=== PATIENT | male | born 1945 | race Hispanic/Latino ===

== ENCOUNTER 2020-08-24 10:00 | Observation (INO) | payer OTHER ==
[2020-08-24 12:51] LABS: BASOPHILS % (AUTO) 0.1 % (0.0-5.0); EOSINOPHILS % (AUTO) 0.3 % (0.0-8.0); HEMATOCRIT 44.2 % (36-48); LYMPHOCYTES % (AUTO) 14.3 % (21.0-51.0); MEAN CORPUSCULAR HEMOGLOBIN 28.4 pg (27.0-33.0); MEAN CORPUSCULAR HGB CONC 32.4 g/dL (32.0-36.0); MEAN CORPUSCULAR VOLUME 87.7 fL (79-99); MONOCYTES % (AUTO) 2.3 % (3.0-13.0); NEUTROPHILS % (AUTO) 82.7 % (40.0-77.0); PLATELET COUNT (AUTO) 268 K/uL (130-400); RED BLOOD CELL COUNT(AUTO) 5.04 MIL/uL (4.00-5.50); RED CELL DISTRIBUTION WIDTH 12.7 % (11.0-15.5); WHITE BLOOD COUNT (AUTO) 8.8 K/uL (4.8-10.8)
[2020-08-24 13:02] LABS: INR 1.01 (0.85-1.15)
[2020-08-24 13:03] LABS: PARTIAL THROMBOPLASTIN TIME 31.1 SEC (26.3-35.5)
[2020-08-24 13:09] LABS: ALBUMIN 3.9 g/dL (3.5-5.0); BILIRUBIN,TOTAL 0.3 mg/dL (0.2-1.0); CREATININE 1.1 mg/dL (0.5-1.5); POTASSIUM 4.4 mmol/L (3.5-5.1); TOTAL PROTEIN, SERUM 7.8 g/dL (6.0-8.3)
[2020-08-31] MEDS ORDERED: TRAZ-185 PO (14:37)
[2020-08-31] MEDS ORDERED: ASPI-1197 PO (14:37)
[2020-08-31] MEDS ORDERED: IBUP-2071 PO (14:37)
[2020-08-31] MEDS ORDERED: TRAM50TA4 PO (14:37)
[2020-08-31] MEDS ORDERED: AMLO-257 PO (14:37)
[2020-08-31] MEDS ORDERED: TELMISARTAN PO (14:40)
[2020-09-01] VITALS (23 sets, daily range): BP systolic 111–167; BP diastolic 43–82
[2020-09-01] MEDS ORDERED: CEFAZOLIN SODIUM 1 GM VIAL IVP SCH (06:00)
[2020-09-01] MEDS ORDERED: TRANEXAMIC ACID 3,000 MG in SODIUM CHLORIDE IRRIG SOLUTION 250 ML TP SCH (06:00)
[2020-09-01] MEDS: LACTATED RINGERS 1000ML 1,000 ML IV SCH ×4 (08:23→15:24)
[2020-09-01] MEDS ORDERED: CEFAZOLIN SODIUM 1 GM VIAL ONE (08:56)
[2020-09-01] MEDS ORDERED: LIDOCAINE HCL-MPF 1% 5ML AMP IJ ONE (09:21)
[2020-09-01] MEDS ORDERED: FENTANYL CITRATE PF 50 MCG/1 ML 2ML VIAL ONE ×2 (09:21→10:06)
[2020-09-01] MEDS ORDERED: SUCCINYLCHOLINE CHLORIDE 20 MG/ML 10 ML VIAL ONE (09:21)
[2020-09-01] MEDS ORDERED: PROPOFOL 10 MG/ML 20ML VIAL IV ONE (09:21)
[2020-09-01] MEDS ORDERED: MIDAZOLAM HCL 1 MG/ML 2ML VIAL ONE (09:21)
[2020-09-01] MEDS ORDERED: TRANEXAMIC ACID 1000MG/10ML ONE (09:23)
[2020-09-01] MEDS ORDERED: EPHEDRINE SULFATE 50 MG/ML AMPULE ONE (09:32)
[2020-09-01] MEDS ORDERED: ROCURONIUM 10MG/1ML SYR 10 MG/ML ML ONE (09:40)
[2020-09-01] MEDS ORDERED: POTASSIUM CHLORIDE 20 MEQ ERTAB PO PRN (09:45)
[2020-09-01] MEDS ORDERED: POTASSIUM CHLORIDE 20MEQ/100ML 100 ML IV PRN (09:45)
[2020-09-01] MEDS ORDERED: POTASSIUM CHLORIDE 10% ELIXIR 20 MEQ/15 ML UDCUP PO PRN (09:45)
[2020-09-01] MEDS: ACETAMINOPHEN EXTRA STRENGTH 500 MG TABLET PO SCH ×2 (09:45→17:00)
[2020-09-01] MEDS ORDERED: LIDOCAINE HCL-MPF 1% 2ML VIAL IV PRN (09:45)
[2020-09-01] MEDS ORDERED: ONDANSETRON HCL 4 MG/2 ML VIAL IVP PRN (09:45)
[2020-09-01] MEDS: SODIUM CHLORIDE 0.9% 1000ML 1,000 ML IV SCH ×2 (09:45→19:45)
[2020-09-01] MEDS ORDERED: BUPIVACAINE/PF 0.25% 30ML VIAL IJ ONE (10:05)
[2020-09-01] MEDS ORDERED: NITROGLYCERIN 50 MG/D5% WATER 0 BOT ONE (10:09)
[2020-09-01] MEDS ORDERED: GLYCOPYRROLATE 1 MG/5 ML SYRINGE ONE (10:12)
[2020-09-01] MEDS ORDERED: MEPERIDINE-PF 25 MG/ML SYG ONE (12:21)
[2020-09-01] MEDS: OXYCODONE HCL 5 MG TAB PO PRN ×2 (15:31→21:31)
[2020-09-01] MEDS: CEFAZOLIN SODIUM 1 GM VIAL IVP SCH ×2 (15:32→20:12)
[2020-09-01] MEDS: MORPHINE SULFATE 4 MG/1ML SYG IVP PRN ×2 (17:01→20:12)
[2020-09-01] MEDS: FAMOTIDINE 20MG TAB 20 MG TAB PO SCH (20:12)
[2020-09-01] MEDS ORDERED: ASPIRIN 81 MG EC TAB PO SCH (21:00)
[2020-09-01] MEDS ORDERED: ASPIRIN 81MG TAB.CHEW ONE (21:06)
[2020-09-01] MEDS: ASPIRIN 81 MG EC TAB PO SCH (21:08)
[2020-09-01] MEDS: TRAMADOL HCL 50 MG TABLET PO PRN (22:36)
[2020-09-01] MEDS: TRAZODONE HCL 50 MG TAB PO PRN (22:36)
[2020-09-01] MEDS: KETOROLAC TROMETHAMINE 15MG/ML IV PRN (23:18)
[2020-09-02 00:07] VITALS: BP 152/77
[2020-09-02] MEDS: ACETAMINOPHEN EXTRA STRENGTH 500 MG TABLET PO SCH ×3 (02:16→20:40)
[2020-09-02 04:00] VITALS: BP 113/65
[2020-09-02 04:06] LABS: HEMATOCRIT 36.9 % (42-54); MEAN CORPUSCULAR HEMOGLOBIN 27.5 pg (27.0-33.0); RED BLOOD CELL COUNT(AUTO) 4.29 MIL/uL (4.50-6.20); RED CELL DISTRIBUTION WIDTH 12.6 % (11.0-15.5); WHITE BLOOD COUNT (AUTO) 13.5 K/uL (4.8-10.8)
[2020-09-02 04:17] LABS: POTASSIUM 4.3 mmol/L (3.5-5.1)
[2020-09-02] MEDS: OXYCODONE HCL 5 MG TAB PO PRN ×3 (05:37→17:10)
[2020-09-02] MEDS ORDERED: ASPIRIN 81MG TAB.CHEW PO SCH (08:00)
[2020-09-02] MEDS: AMLODIPINE BESYLATE 5 MG TAB PO SCH (08:16)
[2020-09-02] MEDS: LOSARTAN 50 MG TABLET PO SCH (08:16)
[2020-09-02] MEDS: ASPIRIN 81 MG EC TAB PO SCH ×2 (08:16→20:39)
[2020-09-02] MEDS: POLYETHYLENE GLYCOL 3350 17 GM POWD.PACK PO SCH (08:17)
[2020-09-02] MEDS: FAMOTIDINE 20MG TAB 20 MG TAB PO SCH ×2 (08:17→20:39)
[2020-09-02] MEDS: KETOROLAC TROMETHAMINE 15MG/ML IV PRN ×2 (08:17→20:42)
[2020-09-02 08:27] VITALS: BP 135/64
[2020-09-02 11:59] VITALS: BP 121/61
[2020-09-02] MEDS: MORPHINE SULFATE 4 MG/1ML SYG IVP PRN (12:49)
[2020-09-02 17:03] VITALS: BP 120/72
[2020-09-02 19:38] VITALS: BP 156/75
[2020-09-02] MEDS: TRAZODONE HCL 50 MG TAB PO PRN (20:41)
[2020-09-03 04:00] VITALS: BP 128/60
[2020-09-03] MEDS: KETOROLAC TROMETHAMINE 15MG/ML IV PRN ×2 (04:12→10:58)
[2020-09-03] MEDS: ACETAMINOPHEN EXTRA STRENGTH 500 MG TABLET PO SCH ×2 (05:19→14:48)
[2020-09-03 08:00] VITALS: BP 119/49
[2020-09-03] MEDS: POLYETHYLENE GLYCOL 3350 17 GM POWD.PACK PO SCH (10:57)
[2020-09-03] MEDS: FAMOTIDINE 20MG TAB 20 MG TAB PO SCH (10:57)
[2020-09-03] MEDS: AMLODIPINE BESYLATE 5 MG TAB PO SCH (10:58)
[2020-09-03] MEDS: ASPIRIN 81 MG EC TAB PO SCH (10:58)
[2020-09-03] MEDS: LOSARTAN 50 MG TABLET PO SCH (10:58)
[2020-09-03 11:00] VITALS: BP 145/61
[2020-09-03] MEDS: TRAMADOL HCL 50 MG TABLET PO PRN (14:47)
[2020-09-03 16:52] VITALS: BP 123/82
[2020-09-04] MEDS ORDERED: BISACODYL 10 MG SUPP.RECT RC PRN (09:45)
== END 2020-09-03 17:36 | disposition home health service (06) ==
LOC: EDSTATUS 10:00 → DAHIP 09-01 07:11 → EDSEX 09-01 07:11 → 4AH 09-01 13:11
PROVIDERS: ADMIT Orthopaedic Surgery; ATTEND Orthopaedic Surgery
DX: M17.12 Unilateral primary osteoarthritis, left knee (principal); Z20.822 Contact with and (suspected) exposure to COVID-19; M21.162 Varus deformity, not elsewhere classified, left knee; E78.00 Pure hypercholesterolemia, unspecified; I10 Essential (primary) hypertension; Z90.49 Acquired absence of other specified parts of digestive tract; Z79.899 Other long term (current) drug therapy
CPT/HCPCS: 27447; 36415 ×2; 71045; 73560; 80048; 80053; 85025; 85027; 85610; 85730; 87641; 93005; 96374; 96375; 96376 ×3; 97039 ×6; 97116 ×4; 97161; 97530 ×3; A4215; A4221; A4222; A4223; A4649 ×6; A4663; A4930 ×2; A6223; C1776; G0378 ×53; G8978; G8979; G8980; G8981; G8982; G8983; J0330; J0690 ×3; J1885 ×5; J2175; J2250; J2270 ×3; J2405; J2704; J3010 ×2; J3490 ×5; J7120 ×2; U0003

== ENCOUNTER → 2022-04-18 | Outpatient (CLI) | payer OTHER, MEDICARE ==
[~2022-04-18] MED LIST: AMLO-257 PO; ASPI-1197 PO; IBUP-2071 PO; TELMISARTAN PO; TRAM50TA4 PO; TRAZ-185 PO
[2022-04-18 10:20] LABS: CREATININE 1.1 mg/dL (0.5-1.5)
== END | disposition home or self-care (01) ==
LOC: LAB 09:26
PROVIDERS: ATTEND Otolaryngology Plastic Surgery within the Head & Neck
DX: H90.3 Sensorineural hearing loss, bilateral (principal)
CPT/HCPCS: 36415; 82565; 84520

== ENCOUNTER → 2022-07-02 | Outpatient (CLI) | payer OTHER, MEDICARE | END | disposition home or self-care (01) | LOC: LAB 09:59 | PROVIDERS: ATTEND Otolaryngology Plastic Surgery within the Head & Neck | DX: H90.3 Sensorineural hearing loss, bilateral (principal) | CPT/HCPCS: 36415; 82565; 84520 ==

== ENCOUNTER → 2022-07-03 | Outpatient (CLI) | payer OTHER, MEDICARE ==
[~2022-07-03] MED LIST changes: +GADOTERATE MEGLUMINE 10 MMOL/20 ML VIAL IV ONE
== END | disposition home or self-care (01) ==
LOC: RAH 13:40
PROVIDERS: ATTEND Otolaryngology Plastic Surgery within the Head & Neck
DX: H90.3 Sensorineural hearing loss, bilateral (principal)
CPT/HCPCS: 70553; A9575

== ENCOUNTER → 2023-07-31 | Outpatient (CLI) | payer OTHER, MEDICARE ==
[~2023-07-31] MED LIST changes: -GADOTERATE MEGLUMINE 10 MMOL/20 ML VIAL IV ONE
== END | disposition home or self-care (01) ==
LOC: LAB 13:37
PROVIDERS: ATTEND Physician Assistant
DX: I11.9 Hypertensive heart disease without heart failure (principal)
CPT/HCPCS: 84484

== ENCOUNTER → 2023-08-20 | Outpatient (CLI) | payer OTHER, MEDICARE ==
[2023-08-20] MEDS: REGADENOSON 0.4 MG/5 ML PF SYG IVP ONE (11:55)
== END | disposition home or self-care (01) ==
LOC: SHCH 09:07
PROVIDERS: ATTEND Internal Medicine Cardiovascular Disease
DX: I44.7 Left bundle-branch block, unspecified (principal); R07.9 Chest pain, unspecified
CPT/HCPCS: 78452; 96374; 93017; J2785; A9500 ×2

== ENCOUNTER 2024-03-27 19:04 | Emergency (ER) | payer MEDICARE ==
[~2024-03-27] VITALS: Ht 167.6 cm; Wt 79.1 kg
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
[2024-03-27] MEDS: ketOROlac 60 MG VIAL (30MG/ML) IM ONE (19:39)
[2024-03-27] MEDS: acetaMINOPHEN 500 MG TABLET PO ONE (19:40)
[2024-03-27 20:15] VITALS: BP 151/75; PULSE 87; RESP 18; TEMP 98.1; O2SAT 97
[2024-03-27] MEDS ORDERED: METH4TAB3 PO (20:44)
--- NOTE | 2024-03-28 08:59 | HMCIMG ---
Elbow AP and lateral, right Clinical Information: pain, swelling Comparison: None Findings: There is osteophytosis of the olecranon process. There are degenerative changes of the elbow joint with multi compartment osteophytosis, joint space narrowing, and subchondral sclerosis. The fat pads are not elevated. There is no evidence of joint effusion or hemarthrosis. There are no fractures. No blastic or lytic lesions are seen. The rest of the soft tissues the soft tissues are present. There is adequate alignment. Impression: Degenerative changes of the elbow.
== END 2024-03-27 20:55 | disposition home or self-care (01) ==
LOC: EDH 19:04
DX: M70.32 Other bursitis of elbow, left elbow (principal); I10 Essential (primary) hypertension; X58.XXXA Exposure to other specified factors, initial encounter; Y93.89 Activity, other specified; Y92.89 Other specified places as the place of occurrence of the external cause; Y99.8 Other external cause status
CPT/HCPCS: 99283; 73080; 96372; J1885

== ENCOUNTER 2024-08-19 15:46 | Emergency (ER) | payer MEDICARE ==
[~2024-08-19] VITALS: Ht 167.6 cm; Wt 78.5 kg
[~2024-08-19 15:46] MED LIST changes: +METH4TAB3 PO
[2024-08-19 16:11] LABS: RAPID GROUP A STREP negative (NEGATIVE)
[2024-08-19 16:15] LABS: SARS-CoV-2, RNA, NAAT NEGATIVE SARS CoV-2 (NEGATIVE)
[2024-08-19 16:21] LABS: INFLUENZA TYPE A Negative For Type A (NEGATIVE); INFLUENZA TYPE B Negative For Type B (NEGATIVE)
[2024-08-19] MEDS: dexaMETHasone SOD PHOSPHATE 4 MG/ML 1ML VIAL IM ONE (18:07)
[2024-08-19] MEDS ORDERED: MAGIC PO (18:21)
[2024-08-19] MEDS ORDERED: METH4TAB3 PO (18:21)
--- NOTE | 2024-08-19 18:21 | ERN ---
General Chief Complaint: Sore Throat Stated Complaint: SORE THROAT Time Seen by MD: 16:13 History of Present Illness Allergies: Coded Allergies: No Known Drug Allergies (Verified Allergy, Unknown, 08/30/20) Home Meds Active Scripts Methylprednisolone (Medrol) 4 Mg Tab.ds.pk, 4 MG PO AD for 6 Days, #1 PACK Day 1: Take 2 tablets before breakfast,1 tablet after lunch and supper, and 2 tablets at bedtime. Day 2: Take1 tablet before breakfast,1 tablet after lunch,1 tablet after supper, and 2 tablets at bedtime. Day 3: Take 1 tablet before breakfast, 1 tablet after lunch, 1 tablet after supper, and 1 tablet at bedtime. Day 4: Take 1 tablet before breakfast, 1 tablet after lunch, and 1 tablet at bedtime. Day 5: Take1 tablet before breakfast and 1 tablet at bedtime. Day 6: Take 1 tablet before breakfast. Prov:GENE WELLS STOGY MAKER 03/27/24 Reported Medications [Telmisartan] No Conflict Check, 50 MG PO DAILY 08/31/20 Trazodone HCl (Trazodone HCl) 50 Mg Tablet, 50 MG PO HSPRN, TAB 08/31/20 Ibuprofen (Ibuprofen) 800 Mg Tablet, 800 MG PO Q6H, TAB 08/31/20 Amlodipine Besylate (Amlodipine Besylate) 5 Mg Tablet, 5 MG PO DAILY, TAB 08/31/20 Aspirin (Aspirin) 81 Mg Tab.chew, 81 MG PO DAILYBKFST, TAB.CHEW 08/31/20 Tramadol Hcl (Tramadol HCl) 50 Mg Tablet, 50 MG PO AD, TAB 08/31/20 Past Medical History Past Medical History: High Cholesterol, Hypertension Past Surgical History: Other Surgical History Other: ABD Results Laboratory and Microbiology Lab and Micro Result Laboratory Tests Test 08/19/24 15:54 Influenza Type A Antigen Negative For Type A Influenza Type B Antigen Negative For Type B SARS-CoV-2, RNA, NAAT NEGATIVE SARS CoV-2 Group A Streptococcus Rapid negative (NEGATIVE) ED Course Orders Procedure Category Date Status Time Covid Rna Naat LAB 08/19/24 Complete 15:52 Rapid (Group A Strep) LAB 08/19/24 Complete 15:52 Influenza Type A & B, LAB 08/19/24 Complete Rapid 15:52 Dexamethasone 4mg/Ml PHA 08/19/24 Complete 1ml Vial (Dexametha 18:00 Current Medications Medications (Trade) Dose Ordered Sig/Elaina Route PRN Reason Start Time Stop Time Status Last Admin Dose Admin Dexamethasone Sodium Phosphate (dexaMETHasone 4MG/ML 1ML VIAL) 4 mg ONCE ONCE IM 08/19/24 18:00 08/19/24 18:03 DC 08/19/24 18:07 Vital Signs Date Time Temp Pulse Resp B/P (MAP) Pulse Ox O2 Delivery O2 Flow Rate FiO2 08/19/24 15:59 98.8 79 20 168/71 99 Room Air* 0 21 08/19/24 15:48 98.8 79 20 168/71 99 Room Air DX & DISP Disposition: Discharge Departure Impression: Primary Impression: Pharyngitis Condition: Stable Scripts Methylprednisolone (Medrol) 4 Mg Tab.ds.pk 1 TAB PO AD for 6 Days, #21 TAB 0 Refills 6 on day 1 then reduce by one tablet daily until gone Prov: RAIMUNDO SAENZ 08/19/24 Lidocaine HCl (Magic Mouthwash [Maalox/Lidocaine/Nystatin]) 200 Mg-200 Mg-20 Mg/5 Ml Soln 15 ML PO TID for 7 Days, #355 ML 0 Refills Prov: RAIMUNDO SAENZ 08/19/24 Referrals: CANDIE BUSTAMANTE MD (PCP) CANDIE JEFFRIES III, MD I have reviewed the case, and I agree with, Diagnosis and Plan RAIMUNDO SAENZ Aug 19, 2024 18:21
[2024-08-19 18:50] VITALS: BP 148/74; PULSE 74; RESP 20; TEMP 98.8; O2SAT 99
== END 2024-08-19 18:50 | disposition home or self-care (01) ==
LOC: EDH 15:46
DX: J02.9 Acute pharyngitis, unspecified (principal); E78.00 Pure hypercholesterolemia, unspecified; I10 Essential (primary) hypertension; Z79.899 Other long term (current) drug therapy; Z20.822 Contact with and (suspected) exposure to COVID-19
CPT/HCPCS: 99283; 87635; 87880; 87804 ×2; 96372; J1100

== ENCOUNTER 2024-11-30 21:01 | Emergency (ER) | payer MEDICARE ==
[~2024-11-30] VITALS: Ht 167.6 cm; Wt 79.8 kg
[~2024-11-30 21:01] MED LIST changes: +MAGIC PO
[2024-11-30 21:47] LABS: IMMATURE GRANULOCYTE ABSOLUTE 0.02 K/uL (0-1); NUCLEATED RED BLOOD CELLS 0.0 % (0.0-0.19); PLATELET COUNT (AUTO) 198 K/uL (130-400); RED BLOOD CELL COUNT(AUTO) 4.75 MIL/uL (4.50-6.20); RED CELL DISTRIBUTION WIDTH 13.3 % (11.0-15.5); WHITE BLOOD COUNT (AUTO) 8.2 K/uL (4.8-10.8)
[2024-11-30 21:59] LABS: CREATININE 1.2 mg/dL (0.5-1.3); GLOMERULAR FILTR. RATE CALC 61.0 mL/min (>90); GLUCOSE,RANDOM 153.0 mg/dL (70-105); SODIUM SERUM 136.0 mmol/L (136-145); UREA NITROGEN, BLOOD 15.0 mg/dL (7-18)
[2024-11-30 22:08] LABS: CREATINE KINASE, TOTAL 59.0 U/L (21-232)
--- NOTE | 2024-11-30 22:31 | ERN ---
General Chief Complaint: Hypertension Stated Complaint: C/O HIGH B/P, PT APPEARS ANXIOUS Time Seen by MD: 21:09 Time Seen by Midlevel: 21:09 Source: patient History of Present Illness Initial Comments The patient is a 79-year-old male presenting to the emergency department for evaluation of elevated blood pressure readings at home. Patient states he was i n his stressful situation at home and has noticed his blood pressure consistently been elevated. He normally takes amlodipine and has been taking it as prescribed but still notices episodes of elevated blood pressure readings. On arrival he specifically denies any chest pain, shortness for breath, or any other symptoms at this time. Allergies: Coded Allergies: No Known Drug Allergies (Verified Allergy, Unknown, 08/30/20) Home Meds Active Scripts Methylprednisolone (Medrol) 4 Mg Tab.ds.pk, 1 TAB PO AD for 6 Days, #21 TAB 0 Refills 6 on day 1 then reduce by one tablet daily until gone Prov:RAIMUNDO SAENZ 08/19/24 Lidocaine HCl (Magic Mouthwash [Maalox/Lidocaine/Nystatin]) 200 Mg-200 Mg-20 Mg/5 Ml Soln, 15 ML PO TID for 7 Days, #355 ML 0 Refills Prov:RAIMUNDO SAENZ 08/19/24 Methylprednisolone (Medrol) 4 Mg Tab.ds.pk, 4 MG PO AD for 6 Days, #1 PACK Day 1: Take 2 tablets before breakfast,1 tablet after lunch and supper, and 2 tablets at bedtime. Day 2: Take1 tablet before breakfast,1 tablet after lunch,1 tablet after supper, and 2 tablets at bedtime. Day 3: Take 1 tablet before breakfast, 1 tablet after lunch, 1 tablet after supper, and 1 tablet at bedtime. Day 4: Take 1 tablet before breakfast, 1 tablet after lunch, and 1 tablet at bedtime. Day 5: Take1 tablet before breakfast and 1 tablet at bedtime. Day 6: Take 1 tablet before breakfast. Prov:GENE WELLS 03/27/24 Reported Medications [Telmisartan] No Conflict Check, 50 MG PO DAILY 08/31/20 Trazodone HCl (Trazodone HCl) 50 Mg Tablet, 50 MG PO HSPRN, TAB 08/31/20 Ibuprofen (Ibuprofen) 800 Mg Tablet, 800 MG PO Q6H, TAB 08/31/20 Amlodipine Besylate (Amlodipine Besylate) 5 Mg Tablet, 5 MG PO DAILY, TAB 08/31/20 Aspirin (Aspirin) 81 Mg Tab.chew, 81 MG PO DAILYBKFST, TAB.CHEW 08/31/20 Tramadol Hcl (Tramadol HCl) 50 Mg Tablet, 50 MG PO AD, TAB 08/31/20 Past Medical History Past Medical History: High Cholesterol, Hypertension Past Surgical History: None Surgical History Other: ABD ROS Dictation CONSTITUTIONAL: Negative except for HPI HEAD/FACE: Negative except for HPI EENT: Negative except for HPI RESPIRATORY: Negative except for HPI GASTROINTESTINAL/ABDOMINAL: Negative except for HPI GENITOURINARY: Negative except for HPI MUSCULOSKELETAL: Negative except for HPI INTEGUMENTARY: Negative except for HPI NEUROLOGICAL/PSYCH: Negative except for HPI HEMATOLOGIC/LYMPHATIC: Negative except for HPI All Systems Negative, Except as noted above. 13 point review of systems assessed and all negative except for above. Physical Exam Physical Exam Dictation Vital Signs reviewed General Appearance: Alert, oriented x 3, no acute distress, well developed, nourished. Head and Face: non-traumatic. Eyes: PERRL, pink conjunctivas, eyelid no trauma, anterior chamber with arcus senilis. Ears: Pinnas intact and no signs of trauma or erythema ear canals clear and no discharge TM no erythema Nose: No discharge, no bleeding. Oropharynx: Mouth normal, tongue pink, pharynx clear,no erythema, tonsils no exudates, no abscesses noted, mucous membrane moist Neck: Supple, non-tender, no thyromegaly, no masses, no JVD, no bruits Breast:Deferred Chest:No tenderness, no crepitus, no paradoxical movement, no retractions Lungs:Clear, well-ventilated, symmetric, no rales, no wheezing, no rhonchi, no stridor, good breath sounds bilaterally Heart: Regular rate, regular rhythm, no murmur, no gallops Vascular: no peripheral edema, Abdomen: Soft, positive bowel sounds, nondistended, no guarding, nontender, no rebound, no masses no hepatomegaly, no splenomegaly, no Reina's sign, no hernias. Rectal: Deferred Genital: Deferred Neurological: Normal speech, motor function intact, sensory function intact Musculoskeletal: Neck nontender, full range of motion, back nontender, full range of motion, Extremities: nontender, full range of motion Skin: Color pink, dry, no turgor, no rash, no lacerations, no abrasions, no contusions. Lymphatic: Deferred Results Laboratory and Microbiology Lab and Micro Result Laboratory Tests Test 11/30/24 21:40 White Blood Count 8.2 K/uL (4.8-10.8) Red Blood Count 4.75 MIL/uL (4.50-6.20) Hemoglobin 13.8 g/dL (14.0-18.0) L Hematocrit 42.9 % (42-54) Mean Corpuscular Volume 90.3 fL (79-99) Mean Corpuscular Hemoglobin 29.1 pg (27.0-33.0) Mean Corpuscular Hemoglobin Concent 32.2 g/dL (32.0-36.0) Red Cell Distribution Width 13.3 % (11.0-15.5) Platelet Count 198 K/uL (130-400) Mean Platelet Volume 10.5 fL (7.5-10.5) Immature Granulocyte % (Auto) 0.2 % (0-1) Neutrophils (%) (Auto) 86.7 % (40.0-77.0) H Lymphocytes (%) (Auto) 10.8 % (21.0-51.0) L Monocytes (%) (Auto) 2.2 % (3.0-13.0) L Eosinophils (%) (Auto) 0.0 % (0.0-8.0) Basophils (%) (Auto) 0.1 % (0.0-5.0) Neutrophils # (Auto) 7.1 K/uL (1.8-7.7) Lymphocytes # (Auto) 0.9 K/uL (1.0-4.8) L Monocytes # (Auto) 0.2 K/uL (0.1-1.0) Eosinophils # (Auto) 0.00 K/uL (0.00-0.70) Basophils # (Auto) 0.01 K/uL (0.00-0.20) Absolute Immature Granulocyte (auto 0.02 K/uL (0-1) Nucleated Red Blood Cells 0.0 % (0.0-0.19) Sodium Level 136 mmol/L (136-145) Potassium Level 4.9 mmol/L (3.5-5.1) Chloride Level 102 mmol/L (101-111) Carbon Dioxide Level 28 mmol/L (21-32) Blood Urea Nitrogen 15 mg/dL (7-18) Creatinine 1.2 mg/dL (0.5-1.3) Glomerular Filtration Rate Calc 61 mL/min (>90) Random Glucose 153 mg/dL (70-105) H Total Calcium 9.0 mg/dL (8.5-10.1) Magnesium Level 1.80 mg/dL (1.80-2.40) Total Creatine Kinase 59 U/L (21-232) Troponin I High Sensitivity 34 ng/L (4-75) B-Type Natriuretic Peptide 51 pg/mL (0-100) Labs Reviewed?: Yes MDM MDM: Differential diagnosis: Acute coronary syndrome, hypertensive emergency, dehydration There are no social concerns with this patient. Prescription drug management Prescriptions will include: None Medical management and examination interpretation discussions were had by me with other qualified healthcare professionals as indicated for the patient's care. ED Course Orders Procedure Category Date Status Time Cbc With Differential LAB 11/30/24 Complete 21:08 Basic Metabolic Panel LAB 11/30/24 Complete 21:08 12 Lead Ekg Tracing- EKG 11/30/24 Logged Technical 21:12 Chest 1vw RAD 11/30/24 Taken 21:12 Troponin I High LAB 11/30/24 Complete Sensitivity 21:12 B-Type Natriuretic LAB 11/30/24 Complete Peptide 21:12 Creatine Kinase, Total LAB 11/30/24 Complete 21:40 Magnesium LAB 11/30/24 Complete 21:40 Vital Signs Date Time Temp Pulse Resp B/P (MAP) Pulse Ox O2 Delivery O2 Flow Rate FiO2 11/30/24 22:02 81 18 128/72 96 Room Air* 0 11/30/24 21:11 86 18 140/72 99 Room Air* 0 11/30/24 21:03 98.8 104 20 160/73 97 DX & DISP Disposition: Discharge Departure Impression: Primary Impression: Elevated blood pressure reading Condition: Stable Additional Instructions: Your blood work today is unremarkable. Your cardiac enzymes are negative. Your EKGs normal. Your chest x-ray is normal. Please follow up with your primary care doctor as you may need adjustments to your blood pressure medication. Continue to monitor blood pressure at home. Referrals: CANDIE BUSTAMANTE MD (PCP) Time of Disposition: 22:39 I have reviewed the case, and I agree with, Diagnosis and Plan I performed the substantive portion of the visit. I have reviewed and personally made and approve the management plan that is documented in the note by myself or the FRANCIS. I acknowledge for responsibility for the patient's management plan. RAIMUNDO SAENZ Nov 30, 2024 22:30
[2024-11-30 23:01] VITALS: BP 137/67; PULSE 77; RESP 17; TEMP 98.6; O2SAT 96
--- NOTE | 2024-12-01 00:03 | HMCIMG ---
EXAM: CR Chest, 1 view CLINICAL HISTORY: Chest pain. COMPARISON: Chest radiograph dated 08/24/2020. FINDINGS: The lungs show no infiltrates or other acute findings. No pleural effusion or pneumothorax. The cardiomediastinal silhouette is within normal limits. No acute osseous abnormality. IMPRESSION: No acute cardiopulmonary process is evident. No interval changes. /[place]
--- NOTE | 2024-12-01 06:52 | EKG ---
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
== END 2024-11-30 23:04 | disposition home or self-care (01) ==
LOC: EDH 21:01
DX: I10 Essential (primary) hypertension (principal); E78.00 Pure hypercholesterolemia, unspecified; Z79.899 Other long term (current) drug therapy
CPT/HCPCS: 36415; 71045; 80048; 82550; 83735; 83880; 84484; 85025; 93005; 99285

== ENCOUNTER 2024-12-07 12:45 | Emergency (ER) | payer MEDICARE ==
[~2024-12-07] VITALS: Ht 167.6 cm; Wt 77.6 kg
--- NOTE | 2024-12-07 14:32 | ERN ---
ED Note History of Present Illness Stated Complaint: LEFT FOOT PAIN, DENIES INJURY Chief Complaint: FOOT INJURY/PAIN Time Seen by MD: 13:15 Time Seen by Midlevel: 13:15 Dictation: 79-year-old male who presents to the emergency department due to reported having pain to the left ankle that began today at 3:00 a.m.. He denies having sustained any trauma. Currently, he denies having any fever or chills associated with this. Patient states the pain is constant regardless of movement. He states that he did have it was but in the left elbow and the right foot which went away by itself. Upon initial evaluation, the patient presents with a normal neurovascular examination. 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 Day 2: Take1 tablet before breakfast,1 tablet after lunch,1 tablet after supper, and 2 tablets at bedtime. Day 3: Take 1 tablet before breakfast, 1 tablet after lunch, 1 tablet after supper, and 1 tablet at bedtime. Day 4: Take 1 tablet before breakfast, 1 tablet after lunch, and 1 tablet at bedtime. Day 5: Take1 tablet before breakfast and 1 tablet at bedtime. Day 6: Take 1 tablet before breakfast. Prov:GENE WELLS 03/27/24 Reported Medications [Telmisartan] No Conflict Check, 50 MG PO DAILY 08/31/20 Trazodone HCl (Trazodone HCl) 50 Mg Tablet, 50 MG PO HSPRN, TAB 08/31/20 Ibuprofen (Ibuprofen) 800 Mg Tablet, 800 MG PO Q6H, TAB 08/31/20 Amlodipine Besylate (Amlodipine Besylate) 5 Mg Tablet, 5 MG PO DAILY, TAB 08/31/20 Aspirin (Aspirin) 81 Mg Tab.chew, 81 MG PO DAILYBKFST, TAB.CHEW 08/31/20 Tramadol Hcl (Tramadol HCl) 50 Mg Tablet, 50 MG PO AD, TAB 08/31/20 Past Medical History Past Medical History: High Cholesterol, Hypertension Surgical History: None Surgical History Other: ABD PSYCH History: no pertinent psych hx RN Note Reviewed/Agreed w/PFSH: Yes Review of System Dictation MS/Extremity: Left ankle pain. Initial Vital Sign VS Vital Signs Date Time Temp Pulse Resp B/P (MAP) Pulse Ox O2 Delivery O2 Flow Rate FiO2 12/07/24 12:47 98.4 99 16 130/86 97 Room Air 0 12/07/24 15:12 21 Physical Exam Dictation General: awake, alert, NAD Head/Face: Normocephalic, atraumatic Eyes: PERRL, EOMI ENT: Oral mucosa moist Neck: Trachea midline, supple Cardiovascular: RRR, no edema Respiratory: Symmetrical, non-labored Abdomen: Soft, non-tender, non-distended, no guarding. Skin: Warm, dry, good turgor, no rash MS/Extremity: Pulses equal, no cyanosis, painful range of motion, swelling and tenderness of the left ankle. Normal neurovascular examination. Neuro: COAx4, GCS 15, steady gait, Psych: Normal behavior, mood, and affect normal Results (Laboratory/Radiology) X-RAY Comment: Three-view x-ray of the left ankle with no cortical anomalies or deformities as interpreted by me. ED Course ED Course Orders Procedure Category Date Status Time Ankle Comp 3vws Lt RAD 12/07/24 Resulted 14:28 Ketorolac 60mg/2ml PHA 12/07/24 Complete (Toradol 60mg/2ml) 14:30 Methylprednisolone PHA 12/07/24 Complete Acetate (Depo-Medrol 14:30 Current Medications Medications (Trade) Dose Ordered Sig/Elaina Route PRN Reason Start Time Stop Time Status Last Admin Dose Admin Ketorolac Tromethamine (toRADol 60MG/ 2ML) 15 mg ONCE ONCE IM 12/07/24 14:30 12/07/24 14:34 DC 12/07/24 15:20 Methylprednisolone Acetate (Depo-Medrol 40 Mg/ml Vial) 40 mg ONCE ONCE IM 12/07/24 14:30 12/07/24 14:34 DC 12/07/24 15:20 Vital Signs Date Time Temp Pulse Resp B/P (MAP) Pulse Ox O2 Delivery O2 Flow Rate FiO2 12/07/24 15:12 98.4 86 18 132/81 97 Room Air* 0 21 12/07/24 12:47 98.4 99 16 130/86 97 Room Air 0 Medical Decision Making MDM MDM: Differential diagnosis: Acute left ankle pain, gout, left ankle sprain. Rationale: Tests considered and ordered secondary to shared decision making incl ude: Previous outside records reviewed: Old ER visits. Risk of complication and/or morbidity or mortality of patient management: None Medications-Per medication reconciliation Need for hospitalization: Patient does not meet criteria for hospitalization. Need for emergency major/minor surgery: No There are no social concerns with this patient. Prescription drug management Prescriptions will include symptomatic care Patient's prior external medical records from other ER visits were reviewed by me as indicated. Prior testing and results from previous visits were reviewed. Prior tests were taken into account with medical decision making and resource utilization, independent historian/historians were used to obtain complete medical history. I independently interpreted the test that were performed, results were reviewed by me and considered findings on radiology if ordered. Medical management and examination interpretation discussions were had by me with other qualified healthcare professionals as indicated for the patient's care. DX & DISP Disposition: Discharge Departure Impression: Primary Impression: Acute left ankle pain Condition: Stable Referrals: CANDIE BUSTAMANTE MD (PCP) Time of Disposition: 16:16 [place] GATES Dec 07, 2024 14:32
[2024-12-07] MEDS: methylPREDNISolone aceTATE 40 MG/ML VIAL IM ONE (15:20)
--- NOTE | 2024-12-07 15:40 | HMCIMG ---
EXAM: CR left ankle, 3 View. CLINICAL HISTORY: pain COMPARISON: None provided. FINDINGS: BONES: No acute fracture or aggressive appearing osseous lesion. Large plantar calcaneal spur. Small enthesophyte at the distal Achilles tendon insertion. JOINTS: Mild tibiotalar, posterior subtalar, and midfoot joint osteoarthritis. No dislocation. No radiographic evidence of a joint effusion. SOFT TISSUES: Soft tissue swelling about the ankle. IMPRESSION: 1. No acute osseous injury. 2. Soft tissue swelling about the ankle. /[place]
[2024-12-07 16:44] VITALS: BP 128/74; PULSE 78; RESP 18; TEMP 98.4; O2SAT 97
== END 2024-12-07 16:45 | disposition home or self-care (01) ==
LOC: EDH 12:45
DX: M25.572 Pain in left ankle and joints of left foot (principal); E78.00 Pure hypercholesterolemia, unspecified; I10 Essential (primary) hypertension; Z79.899 Other long term (current) drug therapy
CPT/HCPCS: 99284; 73610; 96372 ×2; J1885; J1010